=== PATIENT | female | born 1970 | race Caucasian/White ===

== ENCOUNTER 2017-08-05 15:50 | Emergency (ER) | payer BC ==
--- NOTE | 2017-08-05 16:48 | UC ---
Throat Pain/Nasal Bishop HPI - HPI Summary HPI Summary: 47 year old female presents with complains of sore throat and chest congestion. - History of Current Complaint Stated Complaint: ST/CHEST CONGESTION Time Seen by Provider: 08/05/17 16:48 Hx Obtained From: Patient Onset/Duration: Sudden Onset Severity: Moderate - Allergies/Home Medications Allergies/Adverse Reactions: Allergies Allergy/AdvReac Type Severity Reaction Status Date / Time Amoxicillin [From Augmentin] Allergy Unknown Verified 08/05/17 16:57 Reaction Details Clavulanic Acid Allergy Unknown Verified 08/05/17 16:57 [From Augmentin] Reaction Details Fluconazole [From Diflucan] Allergy Unknown Verified 08/05/17 16:57 Reaction Details PMH/Surg Hx/FS Hx/Imm Hx Previously Healthy: Yes Review of Systems Constitutional: Negative Skin: Negative Eyes: Negative ENT: Sore Throat, Nasal Discharge, Sinus Congestion, Sinus Pain/Tenderness Respiratory: Cough Cardiovascular: Negative Gastrointestinal: Negative Genitourinary: Negative Motor: Negative Neurovascular: Negative Musculoskeletal: Negative Neurological: Negative Psychological: Negative All Other Systems Reviewed And Are Negative: Yes Physical Exam Triage Information Reviewed: Yes Vital Signs Reviewed: Yes ENT: Positive: Pharyngeal erythema, Nasal congestion, Nasal drainage, Sinus tenderness Dental Exam: Normal Neck exam: Normal Respiratory Exam: Normal Respiratory: Positive: Rhonchi, Wheezing Cardiovascular Exam: Normal Abdominal Exam: Normal Musculoskeletal Exam: Normal Neurological Exam: Normal Throat Pain/Nasal Course/Dx - Differential Dx/Diagnosis Provider Diagnoses: allergic rhinitis. sore throat Discharge - Discharge Plan Condition: Stable Disposition: HOME Prescriptions: Azithromyxin COLIN (NF) [Z-Colin (Zithromax) 250 mg tabs #6] 2 tab PO .TODAY, THEN 1 DAILY #6 tab LoraTADine TAB(NF) [Claritin 10 MG TAB(NF)] 10 mg PO DAILY #30 tab Magic M W2 Javid/Maal/Nyst/Lido* 5 ml SWISH SPIT QID PRN #120 ml PRN Reason: Sore Throat Patient Education Materials: Pharyngitis (ED) Referrals: Barbara Banks MD [Primary Care Provider] -
[2017-08-05 16:57] VITALS: BP 105/65
== END 2017-08-05 17:30 | disposition home or self-care (01) ==
LOC: UCCORT 15:50
DX: J30.9 Allergic rhinitis, unspecified (principal); J02.9 Acute pharyngitis, unspecified; Z88.1 Allergy status to other antibiotic agents
CPT/HCPCS: 87651; 99202; G0463